=== PATIENT | male | born 1990 | race Two or more races ===

== ENCOUNTER → 2016-11-27 | Outpatient (CLI) | payer OTHER ==
--- NOTE | 2016-11-27 10:55 | DX ---
Right Wrist, Three Views 9:37 a.m. Clinical History: 26-year-old male presenting for follow up evaluation to assess healing for an intra articular distal radial fracture after an injury sustained on October 16, 2016. ICD-10 Diagnostic Code: S52.571. Comparison Study: Right wrist, dated October 16, 2016. Findings: Again noted is an intraarticular fracture involving the distal lateral portion of the radia l meta-epiphysis. The alignment remains anatomic and while the fracture lines are still apparent, the y are less conspicuous. The radiocarpal and intercarpal alignments are maintained. The ulnar styloid is intact. Impression: Stable alignment. Slightly less conspicuous fracture line of the distal radial meta-epiph ysis, compared to October 16, 2016.
== END ==
LOC: BMCIMAGING 09:36
PROVIDERS: ATTEND Family Medicine
DX: S52.571D Other intraarticular fracture of lower end of right radius, subsequent encounter for closed fracture with routine healing (principal)

== ENCOUNTER → 2017-03-22 | Outpatient (CLI) | payer OTHER | LOC: BMCIMAGING 12:24 | PROVIDERS: ATTEND Family Medicine | DX: M25.512 Pain in left shoulder (principal) ==